=== PATIENT | female | born 1950 | race Caucasian/White ===

== ENCOUNTER 2018-07-02 18:22 | Emergency (ER) | payer OTHER ==
[~2018-07-02] VITALS: Ht 170.2 cm; Wt 81.6 kg
[2018-07-02 18:28] VITALS: BP 140/71
--- NOTE | 2018-07-02 18:45 | NUR ---
20g iv to L AC x1 attempt.
[2018-07-02] MEDS ORDERED: MOTRIN ONE (18:47)
[2018-07-02] MEDS ORDERED: NS 1000ML 1,000 ML ONE (18:49)
[2018-07-02] MEDS ORDERED: ZOFRAN ONE (18:49)
[2018-07-02] MEDS ORDERED: ZOFRAN IV STA (18:49)
[2018-07-02] MEDS ORDERED: MOTRIN PO STA (18:49)
[2018-07-02] MEDS ORDERED: NS 1000ML 1,000 ML IV STA (18:49)
--- NOTE | 2018-07-02 18:55 | ER.PDOC ---
General Chief Complaint: Requesting Medical Care Stated Complaint: NAUSEA,FEVER Time seen by MD: 18:52 Source: patient Exam Limitations: no limitations History of Present Illness Initial Comments Fever, nausea and generalized bodyaches today. Timing/Duration: abrupt Severity: moderate Associated Symptoms: fever/chills Allergies: Coded Allergies: codeine (Verified Allergy, Unknown, 07/02/18) Constitutional: see HPI EENTM: no symptoms reported Respiratory: no symptoms reported Cardiovascular: no symptoms reported Gastrointestinal: nausea Genitourinary: no symptoms reported Musculoskeletal: no symptoms reported All Other Systems: Reviewed and Negative Physical Exam General Appearance: alert, no distress Nose: nose nml Throat: pharynx nml, airway nml Neck: nml inspection, supple Respiratory: no resp.distress, breath sounds nml Abdomen: non-tender, no organomegaly CVS: reg rate & rhythm, heart sounds nml Skin: color nml, no rash, warm/dry Extremities: non-tender, nml ROM, no pedal edema NEURO/PSYCH: oriented x 3, CN's nml as tested, motor nml, sensation nml, mood/ affect nml Results/Orders Results/Orders Laboratory Tests Test 07/02/18 18:35 07/02/18 18:55 Urine Collection Type UNKNOWN Urine Color YELLOW (YELLOW) Urine Appearance CLOUDY (CLEAR) Urine Bilirubin NEGATIVE MG/DL (NEGATIVE) Urine Ketones NEGATIVE (NEGATIVE) Urine Specific [place] 1.020 (1.005-1.035) Urine pH 5 (5.0-6.0) Urine Protein 100 mg/dL (NEGATIVE) Urine Urobilinogen 1.0 (NEGATIVE) Urine Nitrate POSITIVE (NEGATIVE) Urine Leukocyte Esterase 500/uL 2+ (NEGATIVE) Urine Blood 250 4+ (NEGATIVE) Urine RBC 5-10 RBC/HPF (NONE SEEN) Urine WBC TNTC WBC/HPF (0-2) Urine Squamous Epithelial Cells MODERATE #/HPF (FEW) Urine Bacteria MANY (NONE SEEN) Urine Glucose 50 (NEGATIVE) Influenza Type A Antigen NEGATIVE (NEG) Influenza B Immunofluorescence NEGATIVE (NEG) Group A Streptococcus Screen NEGATIVE (NEGATIVE) White Blood Count 6.6 10^3/uL (4.5-11.0) Red Blood Count 4.25 10^6/uL (4.00-5.20) Hemoglobin 12.9 g/dL (12.0-15.0) Hematocrit 39.2 % (36.0-46.0) Mean Corpuscular Volume 92.2 fL (78-100) Mean Corpuscular Hemoglobin 30.4 pg (26-34) Mean Corpuscular Hemoglobin Concent 32.9 g/dL (33-37) Red Cell Distribution Width 14.1 % (11.5-14.5) Platelet Count 129 10^3/uL (150-400) Mean Platelet Volume 9.3 fL (7.8-11.0) Neutrophils (%) (Auto) 83.4 % (41.0-85.0) Lymphocytes (%) (Auto) 9.9 % (24.0-44.0) Monocytes (%) (Auto) 5.6 % (5.0-12.0) Neutrophils # (Auto) 5.5 10^3/uL (1.8-7.7) Lymphocytes # (Auto) 0.7 10^3/uL (1.0-4.8) Monocytes # (Auto) 0.4 10^3/uL (0.3-0.8) Absolute Immature Granulocyte (auto 0.02 10^3 u/L (0-2) Eosinophils % 0.6 % (0.0-5.0) Basophils % 0.2 % (0.0-0.2) Basophils # 0.0 10^3/uL (0.0-0.1) Eosinophil Count 0.0 10^3/uL (0.0-0.2) Sodium Level 141 mmol/L (132-145) Potassium Level 3.9 mmol/L (3.6-5.2) Chloride Level 105.0 mmol/L (96-109) Carbon Dioxide Level 25.9 mmol/L (20.0-32) Anion Gap 14.0 Blood Urea Nitrogen 12 mg/dL (7-18) Creatinine 1.03 mg/dL (0.59-1.40) Estimated GFR () 64.3 (>/=60) BUN/Creatinine Ratio 11.0 Glucose Level 159 mg/dL (70-110) Calcium Level 8.9 mg/dL (8.4-10.5) Total Bilirubin 1.2 mg/dL (0.2-1.0) Aspartate Amino Transf (AST/SGOT) 31 U/L (0-35) Alanine Aminotransferase (ALT/SGPT) 37 U/L (12-78) Alkaline Phosphatase 61 U/L (50-136) Total Protein 7.8 g/dL (6.4-8.2) Albumin 3.6 g/dL (3.4-5.0) Globulin 4.2 Percent Immature Gran (Cell Imm) 0.30 % (0.00-0.50) Administered Medications Medications (Trade) Dose Ordered Sig/[place] Route PRN Reason Start Time Stop Time Status Last Admin Dose Admin Sodium Chloride 1,000 ml @ 1,200 mls/hr Q50M STAT IV 07/02/18 18:49 07/02/18 19:38 DC 07/02/18 19:00 Ondansetron HCl (Zofran) 4 mg STAT STAT IV 07/02/18 18:49 07/02/18 18:53 DC 07/02/18 19:00 Ibuprofen (Motrin) 800 mg STAT STAT PO 07/02/18 18:49 07/02/18 18:53 DC 07/02/18 19:19 Ceftriaxone Sodium 1000 mg/ Sodium Chloride 100 ml @ 100 mls/hr STAT STAT IV 07/02/18 19:45 07/02/18 20:44 07/02/18 19:55 Departure Time of Disposition: 20:02 Disposition: 01 HOME, SELF-CARE Impression: Primary Impression: UTI (urinary tract infection) Qualified Codes: N39.0 - Urinary tract infection, site not specified; R31.9 - Hematuria, unspecified Condition: Stable Referrals: PCP,UNKNOWN (PCP) PRIMARY CARE PROVIDER Additional Instructions: Cipro Alternate Tylenol with Motrin Q4H as needed for fever of 100.4 and above F/U with your PCP next week Duration or Time Spent with Pa: 60 mins ARIADNE,MARIANN Blackwell MD Jul 02, 2018 18:55
[2018-07-02 19:09] VITALS: BP 123/59
[2018-07-02 19:14] LABS: BASOPHIL % 0.2 % (0.0-0.2); EOSINOPHIL % 0.6 % (0.0-5.0); HEMOGLOBIN 12.9 g/dL (12.0-15.0); LYMPHOCYTES # 0.7 10^3/uL (1.0-4.8); LYMPHOCYTES % 9.9 % (24.0-44.0); MEAN CELL HGB 30.4 pg (26-34); MEAN CELL HGB CONCENTRATION 32.9 g/dL (33-37); MEAN CORP VOLUME 92.2 fL (78-100); MEAN PLATELET VOLUME 9.3 fL (7.8-11.0); MONOCYTES # 0.4 10^3/uL (0.3-0.8); MONOCYTES % 5.6 % (5.0-12.0); NEUTROPHIL # 5.5 10^3/uL (1.8-7.7); NEUTROPHILS % 83.4 % (41.0-85.0); RED CELL DISTRIBUTION WIDTH 14.1 % (11.5-14.5); WHITE BLOOD CELL 6.6 10^3/uL (4.5-11.0)
[2018-07-02 19:23] LABS: BILIRUBIN,URINE NEGATIVE (NEGATIVE)
[2018-07-02 19:31] VITALS: BP 113/55
[2018-07-02 19:33] LABS: CALCIUM 8.9 mg/dL (8.4-10.5); CARBON DIOXIDE 25.9 mmol/L (20.0-32)
[2018-07-02 19:35] LABS: APPEARANCE,URINE CLOUDY (CLEAR); UA COLOR YELLOW (YELLOW)
[2018-07-02 19:37] LABS: STREP SCREEN NEGATIVE (NEGATIVE)
[2018-07-02] MEDS ORDERED: ROCEPHIN 1,000 MG in NS 100ML 100 ML IV STA (19:45)
[2018-07-02] MEDS ORDERED: NS 100ML 100 ML IV ONE (19:46)
[2018-07-02] MEDS ORDERED: ROCEPHIN ONE (19:46)
[2018-07-02 20:24] VITALS: BP 114/55
[2018-07-02 20:44] VITALS: BP 114/55
== END 2018-07-02 20:30 | disposition home or self-care (01) ==
LOC: ER 18:22
DX: N39.0 Urinary tract infection, site not specified (principal); Z88.5 Allergy status to narcotic agent
CPT/HCPCS: 36415; 80053; 81000; 85025; 86710 ×2; 87040 ×2; 87070; 87077; 87086; 87186; 87880; 96365; 96375; 99283; J0696; J2405; J7030; J7050